=== PATIENT | female | born 1930 | race Caucasian/White ===

== ENCOUNTER 2016-07-06 09:19 | Outpatient (CLI) | payer MEDICARE, OTHER ==
[2016-07-06 10:14] LABS: eGFR (African) > 60; eGFR (Non-African) > 60
== END 2016-07-06 09:20 ==
LOC: LAB 09:19
PROVIDERS: ATTEND Family Medicine
DX: I10 Essential (primary) hypertension (principal)
CPT/HCPCS: 36415; 80048

== ENCOUNTER 2016-07-20 10:22 | Outpatient (CLI) | payer MEDICARE, OTHER | END 2016-07-20 10:23 | LOC: RAD 10:22 | PROVIDERS: ATTEND Family Medicine | DX: Z78.0 Asymptomatic menopausal state (principal) | CPT/HCPCS: 77080 ==

== ENCOUNTER 2016-07-30 10:52 | Outpatient (CLI) | payer MEDICARE, OTHER ==
--- NOTE | 2016-07-30 20:40 | Diagnostic Imaging Report ---
[facility] [address] [facility].[address] [address] Report Submission Date: Jul 30, 2016 12:00:17 PM CDT Patient Study Name: GLENYN RIVERA Date: Jul 30, 2016 11:17:26 AM CDT Modality Type: CR Gender: F Description: SPINE : 32 Institution: [facility] Physician: AZEEM HOLGUIN - SAMMI Lumbar spine 3 views History: Increased bone density Findings: Multiple gallstones and calcified gallbladder sediment are observed. Atherosclerotic calcifications are present. Levoconvex rotary lumbar scoliosis is observed. Degenerative disc disease present at all levels between L2 and S1. Grade I degenerative spondylolisthesis is present at L2/L3, L3/L4, and L4/L5. Advanced multilevel bilateral facet arthropathy is observed. There is no evidence of discrete bone lesion. Impression: Advanced multilevel lumbar spondylosis, atherosclerosis, and cholelithiasis. Electronically signed on Jul 30, 2016 12:00:17 PM CDT by: Raphael MORENO
--- NOTE | 2016-07-30 20:40 | Diagnostic Imaging Report ---
[facility] [address] [facility].[address] [address] Report Submission Date: Jul 30, 2016 11:58:26 AM CDT Patient Study Name: GLENNY RIVERA Date: Jul 30, 2016 11:19:19 AM CDT Modality Type: CR Gender: F Description: PELVIS : 32 Institution: [facility] Physician: AZEEM HOLGUIN - OP AP pelvis History: pelvis and low back pain. Increased bone density Findings: Patchy sclerosis is observed in the proximal right femur and right greater than left hemipelvis. Multilevel lumbar spondylosis is present. There is no evidence of fracture. Impression: Bilateral pelvic and proximal right femoral blastic bone lesions, suspicious for metastatic disease. Recommend further clinical evaluation and consider whole body bone scan. Electronically signed on Jul 30, 2016 11:58:26 AM CDT by: Raphael MORENO
== END 2016-07-30 10:53 ==
LOC: RAD 10:52
PROVIDERS: ATTEND Family Medicine
DX: M54.5 Low back pain (principal)
CPT/HCPCS: 72100; 72170

== ENCOUNTER 2016-12-21 17:02 | Emergency (ER) | payer MEDICARE, OTHER ==
[2016-12-21 18:42] LABS: BASOPHILS % 0.1 (0.0-1.5); EOSINOPHILS % 3.1 % (0.0-6.8); MEAN CORPUSCULAR HEMOGLOBIN 30.3 pg (28.0-34.0); MEAN CORPUSCULAR VOLUME 95.4 fl (80.0-100.0); MONOCYTES % 2.6 % (0.0-11.0); NEUTROPHILS # 8.7 # k/uL (1.4-7.7)
[2016-12-21 19:01] LABS: eGFR (African) > 60; eGFR (Non-African) > 60
[2016-12-21] MEDS ORDERED: PHARMACY KEY 1 EACH EACH MC ONE (19:45)
[2016-12-21] MEDS ORDERED: diphenhydrAMINE HCL 50 MG/ML VIAL IM ONE (19:55)
--- NOTE | 2016-12-21 20:01 | ED Physician Documentation ---
General Adult - HISTORIAN Historian: patient - HPI Stated Complaint: rash Chief Complaint: General Adult Further Comments: yes (86 year old female patient brought in by daughter for evaluation of rash and bleeding hemorrhoids. Jhon reports rash started on at [place], was discharged 12/18/16, no treatment. Home health nurse visited today, discussed with Dr Polo who recommended ER visit. Patient denies any itching, denies pain, denies fever or chills. has not used any OTC medication on rash or hemorrhoids.) - ROS CONST: recent illness (Left total knee 12/10/16, readmit for anemia and hyponatremia 12/15-12/18/16) EYES/ENT: none CVS/RESP: none GI/: none MS/SKIN/LYMPH: leg swelling (left - post op) NEURO/PSYCH: difficulty walking (related to post op knee). denies: headache, fainting, dizziness, tingling, numbness, difficulty with speech, anxiety, depression, other - PAST HX Past History: hypertension, other (osteoporosis) Allergies/Adverse Reactions: Allergies Allergy/AdvReac Type Severity Reaction Status Date / Time acetaminophen [From Vicodin] Allergy Verified 12/21/16 17:36 hydrocodone bitartrate Allergy Verified 12/21/16 17:36 [From Vicodin] Home Medications: Ambulatory Orders Medication Instructions Recorded Aspirin [Jose] 325 mg PO DAILY 06/05/12 Celecoxib [Celebrex] 200 mg PO DAILY 12/21/16 Docusate Sodium [Colace] 200 mg PO BID 12/21/16 Gluc Lawrence/Chondro Lawrence A/Vit C/Mn 1,500 mg PO DAILY 12/21/16 [Glucosamine 1,500 Complex Cp] Polyethylene Glycol 3350 [Miralax] 17 gm PO 1100 12/21/16 Tramadol HCl [Ultram] 50 mg PO QID PRN 12/21/16 - SOCIAL HX Smoking History: non-smoker Alcohol Use: none Drug Use: none - FAMILY HX Family History: No - VITAL SIGNS Vital Signs: Vital Signs Temp Pulse Resp BP Pulse Ox 99.1 F 94 H 20 144/51 97 12/21/16 17:03 12/21/16 17:03 12/21/16 17:03 12/21/16 17:03 12/21/16 17:03 - REVIEWED ASSESSMENTS Nursing Assessment Reviewed: Yes Vitals Reviewed: Yes Progress - Progress Progress: 1929 Call to [facility], case discussed with Maxim. Call returned, per Dr Dennis Hgb and Na unchanged from 12/18/16 discharge. Recommended follow up with primary care regarding rash. Reviewed plan with patient and daughter. Will try 1 time dose of benadryl. Will not give steroids as patient is post op knee. Reviewed signs and symptoms to return to ER. ED Results Lab/Radiology - Lab Results Lab Results: Lab Results 12/21/16 12/21/16 12/21/16 18:37 18:37 18:37 WBC 10.30 K/ul K/ul (4.00-12.00) RBC 2.38 M/ul L M/ul (3.90-5.20) Hgb 7.2 g/dL L g/dL (12.0-16.0) Hct 22.7 % L % (34.5-46.5) MCV 95.4 fl fl (80.0-100.0) MCH 30.3 pg pg (28.0-34.0) MCHC 31.8 g/dL g/dL (30.0-36.0) RDW 15.1 % H % (11.3-14.3) Plt Count 311 K/mm3 K/mm3 (130-400) Neut % (Auto) 84.9 % H % (39.0-79.0) Lymph % (Auto) 7.7 % L % (16.0-50.0) [place] % (Auto) 2.6 % % (0.0-11.0) Eos % (Auto) 3.1 % % (0.0-6.8) Baso % (Auto) 0.1 (0.0-1.5) Neut # (Auto) 8.7 # k/uL H # k/uL (1.4-7.7) Lymph # (Auto) 0.8 # k/uL # k/uL (0.6-4.0) [place] # (Auto) 0.3 # k/uL # k/uL (0.0-0.9) Eos # (Auto) 0.3 # k/uL # k/uL (0.0-0.6) Baso # (Auto) 0.0 # k/uL # k/uL (0.0-0.5) Reactive Lymphs % 1.6 % % (0.0-5.0) Reactive Lymphs # 0.2 # k/uL # k/uL (0.0-0.8) PT 11.5 Seconds Seconds (9.4-11.6) INR 1.10 (0.9-1.2) APTT 25.3 Seconds Seconds (24.5-32.8) Sodium 130 mmol/L L mmol/L (136-145) Potassium 3.8 mmol/L mmol/L (3.5-5.0) Chloride 96 mmol/L L mmol/L (98-110) Carbon Dioxide 31 mmol/L mmol/L (20-32) BUN 14 mg/dL mg/dL (10-26) Creatinine 0.6 mg/dL mg/dL (0.4-1.5) Estimated Creat Clear 95 Est GFR ( Amer) > 60 (60 - ) Est GFR (Non-Af Amer) > 60 (60 - ) Glucose 116 mg/dL H mg/dL (70-99) Calcium 8.5 mg/dL mg/dL (8.5-10.5) Total Bilirubin 0.6 mg/dL mg/dL (0.2-1.2) AST 34 U/L U/L (0-41) ALT 27 U/L U/L (0-45) Alkaline Phosphatase 98 U/L U/L (46-116) Total Protein 6.0 g/dL g/dL (6.0-8.5) Albumin 3.5 g/dL g/dL (3.0-5.5) - Orders Orders: ED Orders Category Date Time Status Place IV Lock 1T Care 12/21/16 18:11 Active CBC/PLATELET/DIFF Stat Lab 12/21/16 18:37 Completed CMP Stat Lab 12/21/16 18:37 Completed PT [PT-INR] Stat Lab 12/21/16 18:37 Completed PTT Stat Lab 12/21/16 18:37 Completed UA W/MICRO IF INDICATED Stat Lab 12/21/16 18:11 Ordered Pharmacy [facility] 12/21/16 19:45 Discontinued 1 each [facility] .STK-MED ONE diphenhydrAMINE HCL [Benadryl] Med 12/21/16 19:55 Once 25 mg IM NOW ONE General Adult Physical Exam - PHYSICAL EXAM GENERAL APPEARANCE: [id number] N EENT: eye inspection normal, EDISON RESPIRATORY: no resp distress, chest non-tender, breath sounds normal CVS: reg rate & rhythm, heart sounds normal, equal pulses, no murmur, no gallop , PMI nml, no JVD, no friction rub, 24 ABDOMEN: soft, no organomegaly, normal bowel sounds, no abdominal bruit, no distension BACK: normal inspection, no CVA tenderness SKIN: warm/dry, normal color, other (Erythema noted on posterior left and right leg, bilateral buttock, mildly warm to touch; no drainage, no eruptions or lession. No tenderness to palpation. Left knee with ecchymosis. ) EXTREMITIES: non-tender, edema (left knee - mild), tenderness (left knee) NEURO: oriented X3, CN's nml as tested, motor nml, sensation nml, mood/affect nml Discharge Clincal Impression: Rash vs ecchymosis, Post op Left Total knee, Hyponatremia Hemorrhoid Qualifiers: Hemorrhoid type: third degree Qualified Code(s): K64.2 - Third degree hemorrhoids Anemia Qualifiers: Anemia type: other cause Other causes of anemia: other cause, not classified Qualified Code(s): D64.89 - Other specified anemias Referrals: Laura Meza MD [Primary Care Provider] - 2 Days Additional Instructions: If rash improves with benadryl, then continue 1-2 tabs every 6 hours as needed. Benadryl will not clear any of the bruising around the left knee. Hemorrhoids: Daily stool softener -Continue your Colace/docusate sodium (over the counter) Pain relief: Tucks pads, Proctofoam Shrink hemorrhoids: Preparation H ointment or suppositiory Follow up with Dr Meza for check up this week. Decrease aspirin to [address] Polo's instructions. Continue all other medication as prescribed by [facility]. Home Medications: Ambulatory Orders Aspirin [Jose] 325 mg PO DAILY 06/05/12 Celecoxib [Celebrex] 200 mg PO DAILY 12/21/16 Docusate Sodium [Colace] 200 mg PO BID 12/21/16 Gluc Lawrence/Chondro Lawrence A/Vit C/Mn [Glucosamine 1,500 Complex Cp] 1,500 mg PO DAILY 12/21/16 Polyethylene Glycol 3350 [Miralax] 17 gm PO 1100 12/21/16 Tramadol HCl [Ultram] 50 mg PO QID PRN 12/21/16 Condition: Stable Disposition: 01 HOME, SELF-CARE Decision to Admit: NO Decision Time: 20:04
[2016-12-21 20:36] VITALS: BP 147/55
[2016-12-22 05:23] LABS: APPEARANCE,URINE CLOUDY (CLEAR); COLOR,URINE AMBER (YELLOW); OCCULT BLOOD,URINE 3+ (NEGATIVE); PH URINE 6.5 (5.0 - 8.0); UROBILINOGEN URINE 0.2 Eu (0.2-1.0)
== END 2016-12-21 20:14 | disposition home or self-care (01) ==
LOC: ED 17:02 → EDSTATUS 17:03 → ED 20:14
DX: E87.1 Hypo-osmolality and hyponatremia (principal); K64.2 Third degree hemorrhoids; D64.89 Other specified anemias
CPT/HCPCS: 80053; 81002; 85025; 85610; 85730; 87086; J1200; 96372; 99283; S1016

== ENCOUNTER 2016-12-22 13:58 | Outpatient (CLI) | payer MEDICARE, OTHER ==
[2016-12-21 20:36] VITALS: BP 147/55
[2016-12-22 14:11] LABS: BASOPHILS % 0.1 (0.0-1.5); EOSINOPHILS % 3.2 % (0.0-6.8); MEAN CORPUSCULAR HEMOGLOBIN 30.3 pg (28.0-34.0); MEAN CORPUSCULAR VOLUME 96.6 fl (80.0-100.0); MONOCYTES % 2.3 % (0.0-11.0); NEUTROPHILS # 9.6 # k/uL (1.4-7.7)
[2016-12-22 14:24] LABS: ANISOCYTOSIS 1+ (NEGATIVE); HYPOCHROMASIA 1+ (NEGATIVE)
== END 2016-12-22 14:51 ==
LOC: LABRHC 13:58
PROVIDERS: ATTEND Family Medicine
DX: R21 Rash and other nonspecific skin eruption (principal)
CPT/HCPCS: 36415; 85025

== ENCOUNTER 2017-08-12 13:33 | Outpatient (CLI) | payer MEDICARE, OTHER ==
[2017-08-12 13:58] LABS: BASOPHILS % 0.3 (0.0-1.5); EOSINOPHILS % 1.2 % (0.0-6.8); MEAN CORPUSCULAR HEMOGLOBIN 23.2 pg (28.0-34.0); MEAN CORPUSCULAR VOLUME 83.6 fl (80.0-100.0); MONOCYTES % 4.6 % (0.0-11.0); NEUTROPHILS # 5.4 # k/uL (1.4-7.7)
[2017-08-12 14:14] LABS: eGFR (African) > 60; eGFR (Non-African) > 60
--- NOTE | 2017-08-12 15:09 | Diagnostic Imaging Report ---
AZEEM HOLGUIN~ [facility] [address] [facility]. [address] [place] [address]. [id number] ~ ~ ~ ~ Report Submission Date: Aug 12, 2017 3:00:02 PM CDT Patient ~ Study Name: GLENNY RIVERA ~ Date: Aug 12, 2017 2:28:27 PM CDT ~ Modality Type: CT\SR Gender: F ~ Description: CT ABD PELVIS W/ CON : 32 ~ Institution: [facility] Physician: AZEEM HOLGUIN ~ ~ ~ Examination: CT Abdomen/pelvis History: CT A/P WITH CONTRAST, ABDOMINAL PAIN, WORSENING FOR A FEW MONTHS (Hx) Comparison exams: None available Technique: CT Abdomen/pelvis with IV protocol.~ Findings: Liver demonstrates peripheral nodularity Within the central hepatic region is a large heterogeneous low density area measuring approximately 5.1 cm. Other peripherally based low density regions. Nodularity/nodules involving the gabe hepatis region. Large calcification within the gallbladder. Kidneys are symmetric in size. Possible cyst off the upper pole of the left kidney. No suspicious enhancing lesions. Ureters do not appear to be dilated. Spleen not enlarged. Splenic arterial calcifications. Pancreas does not appear to be enlarged. Mild prominence of the common bile duct. ~ Abdominal aorta demonstrates peripheral atherosclerotic disease. No aneurysm. Cardiac silhouette not enlarged. Diffuse thickening and inflammation surrounding the large bowel. Moderate amount of free fluid projecting over the liver and spleen and within the lower pelvic region. No peripheral enhancement. Mildly prominent small bowel loops with air-fluid levels. Osteopenia and degenerative changes involving the vertebral bodies. Curvature to the left. Anterior narrowing with central lucencies involving the vertebral bodies at the thoracic and lumbar junction. Lung base atelectasis and scarring. No definitive effusion. Impression: Large bowel inflammatory changes suggesting diffuse colitis. Likely associated small bowel gastroenteritis. Significant abdominal ascites. No evidence for abscess. Cirrhotic appearing to the liver with low density lesions centrally - highly concerning for primary versus metastatic hepatic lesions. Enlarged nodules within the gabe hepatis region. Recommend obtaining dedicated large bowel imaging. Large gallstone. Osseous structures demonstrate diffuse degenerative changes with compression deformities - age indeterminate. Suggestive for some ossific lucencies within the thoracic and lumbar region - consider dedicated imaging with possible bone scan to further evaluate. ~ Electronically signed on Aug 12, 2017 3:00:02 PM CDT by: Joaquim MORENO
== END 2017-08-12 13:45 ==
LOC: LAB 13:33
PROVIDERS: ATTEND Family Medicine
DX: R10.9 Unspecified abdominal pain (principal)
CPT/HCPCS: 36415; 74177; 80053; 85025